=== PATIENT | female | born 2000 | race American Indian/Alaskan Native ===

== ENCOUNTER 2020-12-20 18:34 | Emergency (ER) | payer MEDICAID ==
[2020-12-20 19:22] LABS: Basophils % (Auto) 0.3 % (0.0-1.8); Eosinophils # (Auto) 0.1 K/mm3 (0.0-0.4); Hematocrit 37.9 % (30.3-42.9); Hemoglobin 11.7 gm/dl (10.1-14.3); Lymphocytes # (Auto) 2.7 K/mm3 (1.2-5.4); Lymphocytes % (Auto) 36.5 % (13.4-35.0); Mean Corpuscular HGB Conc 31 % (30-34); Mean Corpuscular Volume 75 fl (79-97); Monocytes # (Auto) 0.5 K/mm3 (0.0-0.8); Monocytes % (Auto) 6.5 % (0.0-7.3); Platelet Count 262 K/mm3 (140-440); Red Blood Count 5.09 M/mm3 (3.65-5.03); Red Cell Distribution Width 14.5 % (13.2-15.2)
[2020-12-20 19:42] LABS: Alanine Aminotransferase 13 units/L (7-56); Albumin 4.1 g/dL (3.9-5); Blood Urea Nitrogen 10 mg/dL (7-17); Hemolysis Index 6
[2020-12-20 19:49] LABS: BUN/Creatinine Ratio 17
[2020-12-20 21:41] VITALS: BP 119/67
[2020-12-20 22:01] LABS: Bilirubin,Urine NEG (Negative); Blood,Urine SM (Negative); Color,Urine Yellow (Yellow); Mucus,Urine FEW /HPF; Urobilinogen,Urine < 2.0 mg/dL (<2.0)
--- NOTE | 2020-12-21 01:44 | Emergency Department Report ---
ED Female HPI - General Chief complaint: Abdominal Pain Stated complaint: BAD CRAMPS, VOMITING Time Seen by Provider: 12/20/20 22:43 Source: patient Mode of arrival: Ambulatory Limitations: No Limitations - History of Present Illness Initial comments: 20-year-old abdomen female [facility] emerge department complaining of a 6-day history of a late menstrual cycle associated with pelvic cramping and occasional vomiting that is associated. Ports no fever, chills, sweats no hematuria no chest pain or palpitation -: Gradual Location: suprapubic Radiation: non-radiating Severity: mild Quality: dull Consistency: constant Worsens with: none Are you Now?: No (Reports none 1 week late with menstruation) Associated Symptoms: other. denies: vaginal discharge, vaginal bleeding, abdominal pain, nausea/vomiting, loss of appetite, dysuria, rash - Related Data Previous Rx's Medication Instructions Recorded Last Taken Type Pnv,Calcium 72/Iron/Folic Acid 1 each PO DAILY #30 tablet 12/21/20 Unknown Rx [ Plus Tablet] Allergies Allergy/AdvReac Type Severity Reaction Status Date / Time No Known Allergies Allergy Unverified 12/20/20 18:55 ED Review of Systems ROS: Stated complaint: BAD CRAMPS, VOMITING Other details as noted in HPI Comment: All other systems reviewed and negative ED Past Medical Hx - Past Medical History Previous Medical History?: No - Surgical History Past Surgical History?: No - Medications Home Medications: Home Medications Medication Instructions Recorded Confirmed Last Taken Type Pnv,Calcium 72/Iron/Folic Acid 1 each PO DAILY #30 tablet 12/21/20 Unknown Rx [ Plus Tablet] ED Physical Exam - General Limitations: No Limitations General appearance: alert, in no apparent distress - Head Head exam: Present: atraumatic, normocephalic - Eye Eye exam: Present: normal appearance - ENT ENT exam: Present: mucous membranes moist - Neck Neck exam: Present: normal inspection - Respiratory Respiratory exam: Present: normal lung sounds bilaterally. Absent: respiratory distress - Cardiovascular Cardiovascular Exam: Present: regular rate, normal rhythm. Absent: systolic murmur, diastolic murmur, rubs, gallop - GI/Abdominal GI/Abdominal exam: Present: soft, normal bowel sounds - Extremities Exam Extremities exam: Present: normal inspection - Back Exam Back exam: Present: normal inspection - Neurological Exam Neurological exam: Present: alert, oriented X3 - Psychiatric Psychiatric exam: Present: normal affect, normal mood - Skin Skin exam: Present: warm, dry, intact, normal color. Absent: rash ED Course Vital Signs 12/20/20 18:56 Temperature 98.5 F Pulse Rate 65 Respiratory 18 Rate Blood Pressure 119/67 O2 Sat by Pulse 100 Oximetry ED Medical Decision Making - Lab Data Result diagrams: 12/20/20 19:12 12/20/20 19:12 - Radiology Data Radiology results: report reviewed 5-week IUP is noted with a subchorionic hemorrhage no obvious pole was seen - Medical Decision Making 20-year-old F [place] female presents emerged department today for menstrual cramping and/abdominal pain. Evaluation did did discover elevated hCG quant of over 18,000 and ultrasound was reported to 5-week female. Hemodynamically stable no acute distress she was started on vitamins and advised to follow-up with [facility] for definitive management of this newfound .. Other were discovered her differential diagnosis did include ectopic , threatened inevitable , complete , UTI, ovarian/ovarian torsion,, endometriosis. Doubt alternate acute emergent pathologies present Critical care attestation.: If time is entered above; I have spent that time in minutes in the direct care of this critically ill patient, excluding procedure time. ED Disposition Clinical Impression: 5 weeks gestation of , Morning sickness Disposition: DC-01 TO HOME OR SELFCARE Is pt being admited?: No Does the pt Need Aspirin: No Condition: Stable Instructions: Abdominal Pain (ED), Ultrasound, Abdominal Pain During , Morning Sickness, [id number] Prescriptions: Pnv,Calcium 72/Iron/Folic Acid [ Plus Tablet] 1 each PO DAILY #30 tablet Referrals: PRIMARY CARE [Primary Care Provider] - 3-5 Days [facility] [Provider Group] - 3-5 Days [facility] [Provider Group] - 3-5 Days
--- NOTE | 2020-12-21 02:35 | Ultrasound Report ---
ULTRASOUND OBSTETRIC REASON FOR EXAM: Vaginal bleeding pain TECHNIQUE: Transabdominal and transvaginal ultrasound was performed to evaluate a first trimester pre gnancy. COMPARISON: None available. FINDINGS: FINDINGS: There is a single gestational sac with mean sac diameter measuring 14.7 mm, corresponding to a gestat ional age of 6 weeks and 2 days. Yolk sac is present. No pole is identified. Perigestational hemorrhage: There is perigestational hemorrhage involving less than half the circumfe rence of the gestational sac. MATERNAL FINDINGS: The uterus demonstrates an otherwise unremarkable sonographic appearance. The right ovary demonstrates a normal sonographic appearance. The left ovary demonstrates a normal sonographic appearance. Cul-de-sac: There is no free fluid. IMPRESSION: Intrauterine of uncertain viability. Gestational sac with yolk sac. No pole identifie d at this time. Mean sac diameter corresponds to a gestational age of 6 weeks and 2 days. In a hemody namically stable patient, recommend follow-up with pelvic ultrasound in 7-10 days. There is a small to moderate perigestational hemorrhage which may account for vaginal bleeding. Signer Name: Sandeep Queen MD Signed: 12/21/2020 2:30 AM Workstation Name: [id number]
[2020-12-21] MEDS ORDERED: ONDANSETRON 4 MG ODT TAB PO ONE (02:45)
--- NOTE | 2020-12-21 02:58 | Emergency Department Report ---
Blank Doc - Documentation Documentation: While patient was waiting for her ultrasound results she started to have nausea and vomiting. Will discharge patient on Zofran, recommend B6, hanane root and Unisom.
== END 2020-12-21 03:30 | disposition home or self-care (01) ==
LOC: ED 18:34
DX: O21.9 Vomiting of pregnancy, unspecified (principal); O26.891 Other specified pregnancy related conditions, first trimester; R10.2 Pelvic and perineal pain; Z3A.01 Less than 8 weeks gestation of pregnancy; Z79.899 Other long term (current) drug therapy
CPT/HCPCS: 36415; 76801; 76817; 80053; 81001; 84702; 85025; 87086; 99284